=== PATIENT | female | born 1985 | race Caucasian/White ===

== ENCOUNTER 2017-07-06 10:57 | Emergency (ER) | payer OTHER ==
[2017-07-06] MEDS: ACETAMINOPHEN 325 MG TAB PO (13:59)
== END 2017-07-06 14:46 | disposition left against medical advice (07) ==
LOC: FTE 14:46
DX: N64.4 Mastodynia (principal); R10.2 Pelvic and perineal pain
CPT/HCPCS: 84702; 99283